=== PATIENT | male | born 1965 | race Caucasian/White ===

== ENCOUNTER 2021-11-08 20:21 | Emergency (ER) | payer MEDICARE ==
[~2021-11-08 20:21] MED LIST: AMARYL2 MG PO; AMARYL4 MG PO; AMOXICILLIN500 MG PO; AZITHROMYCIN250 MG PO; BACTRIM DS TAB1 EACH PO; CYMBALTA60 MG PO; GLUCOPHAGE1000 MG PO; HUMULIN N100 UNIT/1 SC; JANUVIA50 MG PO; LISINOPRIL-HCT1 EAC1 PO; METFORMIN HCL1000 MG PO; METFORMIN HCL500 MG PO; OZEMPIC0.25 MG/0. SC; PERCOCET 7.5/321 TAB PO; POTASSIUM CHLO20 ME2 PO; PREDNISONE5 MG PO; TEST STRIPS1 EACH SC; TRESIBA FL100 UNIT/1 SC; TRESIBA FL200 UNIT/1 SC; VIBRAMYCIN100 MG PO; XANAX0.5 MG PO
[2021-11-08 22:30] LABS: BASOPHIL 0.4 % (0-2); EOSINOPHIL 2.7 % (0-5); HCT 47.1 % (42.0-52.0); HGB 15.6 g/dl (13.2-18.0); LYMPHOCYTE 29.9 % (15-48); MCH 30.2 pg (25.0-31.0); MCHC 33.1 g/dL (32.0-36.0); MCV 91.3 fL (78.0-100.0); MONOCYTE 7.6 % (0-12); MPV 9.6 fL (6.0-9.5); NRBC 0; PLT 298 K/uL (150-400); RBC 5.16 M/uL (4.70-6.00); RDW 12.8 % (11.5-14.0); WBC 10.7 K/uL (4.0-10.5)
[2021-11-08 22:39] LABS: INR 1.06 (0.9-1.2); PROTHROMBIN TIME 13.2 SECONDS (11.8-13.4)
[2021-11-08 23:01] LABS: ALBUMIN 3.9 g/dL (3.4-5.0); BILIRUBIN - TOTAL 0.3 mg/dL (0.2-1.0); BUN/CREAT RATIO (CALC) 14.3 RATIO; CREATININE 0.98 mg/dL (0.67-1.17); GLOBULIN (CALCULATION) 3.5 g/dL; POTASSIUM 4.1 mmol/L (3.5-5.1); TOTAL PROTEIN 7.4 g/dL (6.4-8.2)
[2021-11-08 23:12] LABS: CORONAVIRUS 2019 SARS-COV-2 NEGATIVE (NEGATIVE); INFLUENZA A NAA NEGATIVE (NEGATIVE)
[2021-11-08 23:13] LABS: LACTIC ACID 2.5 mmol/L (0.4-1.9)
[2021-11-09 03:51] LABS: BILIRUBIN NEGATIVE (NEGATIVE); BLOOD 1+ Ery/uL (NEGATIVE); CLARITY CLEAR (CLEAR); COLOR YELLOW (YELLOW); GLUCOSE (U) 3+ mg/dL (NORMAL); LEUKOCYTES NEGATIVE Leu/uL (NEGATIVE); NITRITE NEGATIVE (NEGATIVE); PROTEIN NEGATIVE (NEGATIVE); SPECIFIC GRAVITY 1.015 (1.001-1.030); UROBILINOGEN 0.2 mg/dL (0.2-1.0)
[2021-11-09 03:57] LABS: SQUAMOUS EPITHELIAL CELLS RARE; URINARY RBC RARE
== END 2021-11-09 04:15 | disposition home or self-care (01) ==
LOC: FER 20:21
PROVIDERS: Nurse Practitioner Family
DX: J32.9 Chronic sinusitis, unspecified (principal); R07.89 Other chest pain; R20.2 Paresthesia of skin; R10.13 Epigastric pain; E11.9 Type 2 diabetes mellitus without complications; F17.200 Nicotine dependence, unspecified, uncomplicated; J43.9 Emphysema, unspecified; Z20.822 Contact with and (suspected) exposure to COVID-19; Z79.84 Long term (current) use of oral hypoglycemic drugs; Z88.1 Allergy status to other antibiotic agents
CPT/HCPCS: 36415; 70450; 71045; 71275; 80053; 81001; 82728; 83605; 84145; 84484; 85025; 85610; 85730; 93005; J7030; Q9967; U0002

== ENCOUNTER 2022-03-23 11:12 | Emergency (ER) | payer MEDICARE ==
[2022-03-23 11:52] LABS: BASOPHIL 0.3 % (0-2); EOSINOPHIL 2.4 % (0-5); HCT 38.8 % (42.0-52.0); HGB 13.6 g/dl (13.2-18.0); MCH 30.8 pg (25.0-31.0); MCHC 35.1 g/dL (32.0-36.0); MONOCYTE 8.4 % (0-12); MPV 9.9 fL (6.0-9.5); NEUTROPHIL 60.6 % (41-80); NRBC 0; PLT 245 K/uL (150-400); RBC 4.41 M/uL (4.70-6.00); RDW 12.6 % (11.5-14.0); WBC 9.1 K/uL (4.0-10.5)
[2022-03-23 11:59] LABS: INR 1.15 (0.9-1.2); PROTHROMBIN TIME 14.1 SECONDS (11.8-13.4); PTT 26.8 SECONDS (24.4-34.7)
[2022-03-23 13:00] LABS: ALBUMIN 3.4 g/dL (3.4-5.0); BILIRUBIN - TOTAL 0.7 mg/dL (0.2-1.0); BUN/CREAT RATIO (CALC) 23.3 RATIO; CREATININE 0.9 mg/dL (0.67-1.17); FT4 (FREE T4) 1.1 ng/dL (0.76-1.46); GLOBULIN (CALCULATION) 3.2 g/dL; MAGNESIUM 1.1 mg/dL (1.8-2.4); POTASSIUM 3.8 mmol/L (3.5-5.1); TOTAL PROTEIN 6.6 g/dL (6.4-8.2)
== END 2022-03-23 13:14 | disposition left against medical advice (07) ==
LOC: FER 11:12
PROVIDERS: Emergency Medicine
DX: R07.89 Other chest pain (principal); I49.3 Ventricular premature depolarization; E11.9 Type 2 diabetes mellitus without complications; F17.210 Nicotine dependence, cigarettes, uncomplicated; Z79.84 Long term (current) use of oral hypoglycemic drugs; Z79.4 Long term (current) use of insulin; Z20.822 Contact with and (suspected) exposure to COVID-19; Z88.1 Allergy status to other antibiotic agents; Z28.310 Unvaccinated for COVID-19
CPT/HCPCS: 36415; 71045; 80053; 83735; 83880; 84439; 84443; 84484; 85025; 85610; 85730; U0002

== ENCOUNTER 2022-07-27 09:42 | Emergency (ER) | payer MEDICARE ==
[~2022-07-27 09:42] MED LIST changes: +PROVENTIL HFA6.7 GM INH
[2022-07-27 10:11] LABS: BASOPHIL 0.3 % (0-2); EOSINOPHIL 1.6 % (0-5); HCT 46.4 % (42.0-52.0); LYMPHOCYTE 21.4 % (15-48); MCHC 34.5 g/dL (32.0-36.0); MCV 89.9 fL (78.0-100.0); MONOCYTE 6.8 % (0-12); MPV 10.1 fL (6.0-9.5); NEUTROPHIL 69.5 % (41-80); NRBC 0; PLT 261 K/uL (150-400); RBC 5.16 M/uL (4.70-6.00); RDW 12.6 % (11.5-14.0); WBC 13.8 K/uL (4.0-10.5)
[2022-07-27 10:16] LABS: PROTHROMBIN TIME 12.9 SECONDS (11.9-13.9); PTT 26.2 SECONDS (24.9-34.6)
[2022-07-27 10:37] LABS: CKMB 1.3 ng/mL (0.0-3.6)
[2022-07-27 10:54] LABS: BUN/CREAT RATIO (CALC) 17.2 RATIO; CREATININE 0.93 mg/dL (0.67-1.17); POTASSIUM 4.1 mmol/L (3.5-5.1)
[2022-07-27 11:01] LABS: ALBUMIN 3.8 g/dL (3.4-5.0); BILIRUBIN - TOTAL 0.5 mg/dL (0.2-1.0); GLOBULIN (CALCULATION) 4.2 g/dL
[2022-07-27 14:09] LABS: BILIRUBIN NEGATIVE (NEGATIVE); BLOOD 2+ Ery/uL (NEGATIVE); CLARITY CLEAR (CLEAR); COLOR YELLOW (YELLOW); GLUCOSE (U) 1+ mg/dL (NORMAL); LEUKOCYTES NEGATIVE Leu/uL (NEGATIVE); NITRITE NEGATIVE (NEGATIVE); PROTEIN TRACE (LOW) mg/dL (NEGATIVE); SPECIFIC GRAVITY 1.015 (1.001-1.030); UROBILINOGEN 0.2 mg/dL (0.2-1.0); pH 5.5 (5.0-9.0)
[2022-07-27 14:10] LABS: MAGNESIUM 1.2 mg/dL (1.8-2.4)
[2022-07-27 14:11] LABS: ECSTASY (MDMA) NEGATIVE (NEGATIVE); MARIJUANA (THC) NEGATIVE (NEGATIVE); METHADONE NEGATIVE (NEGATIVE); OXYCODONE NEGATIVE (NEGATIVE)
[2022-07-27 14:12] LABS: AMPHETAMINES NEGATIVE (NEGATIVE); BARBITURATES NEGATIVE (NEGATIVE); OPIATES POSITIVE (NEGATIVE)
[2022-07-27 14:15] LABS: URINARY RBC RARE
[2022-07-27 14:51] LABS: CORONAVIRUS 2019 SARS-COV-2 NEGATIVE (NEGATIVE); INFLUENZA A NAA NEGATIVE (NEGATIVE)
[2022-07-27 16:34] LABS: ACETAMINOPHEN (TYLENOL) < 2.0 ug/mL (10.0-30.0)
== END 2022-07-27 18:45 | disposition other institution (70) ==
LOC: FER 09:42
PROVIDERS: Emergency Medicine
DX: H53.2 Diplopia (principal); R20.0 Anesthesia of skin; R47.1 Dysarthria and anarthria; I10 Essential (primary) hypertension; J44.9 Chronic obstructive pulmonary disease, unspecified; Z20.822 Contact with and (suspected) exposure to COVID-19; Z28.310 Unvaccinated for COVID-19; E11.319 Type 2 diabetes mellitus with unspecified diabetic retinopathy without macular edema; E11.40 Type 2 diabetes mellitus with diabetic neuropathy, unspecified; Z88.1 Allergy status to other antibiotic agents; Z79.84 Long term (current) use of oral hypoglycemic drugs; Z79.4 Long term (current) use of insulin
CPT/HCPCS: 36415; 70450; 71045; 80053; 80061; 80305; 81001; 82140; 82550; 82553; 83735; 83874; 84443; 84484; 85025; 85610; 85730; 87880; 93005; 96372; G0480; J2060; J3475; J7030; Q9967; U0002